=== PATIENT | female | born 1985 | race Caucasian/White ===

== ENCOUNTER 2017-01-04 10:55 | Emergency (ER) | payer BC, MEDICAID ==
[~2017-01-04] VITALS: Ht 154.9 cm; Wt 79.0 kg
[~2017-01-04 10:55] MED LIST: FERR-63 PO; IBUP-1008 PO; MULT-1116 PO
[2017-01-04] MEDS ORDERED: LORAZEPAM 1MG TABLET PO ONE (11:45)
[2017-01-04 11:57] LABS: BASOPHILS % 0.4 % (0.0-2.0); EOSINOPHILS % 1.8 % (0.0-5.0); HEMATOCRIT. 39.2 % (36.0-48.0); HEMOGLOBIN. 13.5 g/dL (12.0-16.0); LYMPHOCYTES % 30.4 % (20.0-50.0); MEAN CORPUSCULAR HEMOGLOBIN 30.8 pg (28.0-32.0); MEAN CORPUSCULAR HGB CONC 34.5 g/dL (31.0-37.0); MEAN CORPUSCULAR VOLUME 89.4 fL (81.0-99.0); MEAN PLATELET VOLUME 9.6 fl (7.4-10.4); MONOCYTES % 4.3 % (2.0-8.0); NEUTROPHILS % 63.1 % (40.0-76.0); PLATELET 229 x1000/uL (130-400); RED BLOOD CELL COUNT 4.39 mill/uL (4.2-5.4); RED CELL DISTRIBUTION WIDTH 12.8 % (11.6-14.6); WHITE BLOOD COUNT 7.3 x1000/uL (4.5-11.0)
[2017-01-04 12:02] LABS: CHLORIDE 106 mEq/L (98-107); INDEX HEMOLYSI 1 (1-3); INDEX ICTERIC 1 (1-4); INDEX LIPEMIC 1 (1-3)
[2017-01-04 12:07] LABS: ANION GAP 13; CALCIUM 8.9 mg/dL (8.5-10.1); CARBON DIOXIDE 27 mEq/L (21-32); UREA NITROGEN BLOOD 11 mg/dL (7-21); eGFR > 60 mL/min (>60)
[2017-01-04 12:29] LABS: CLARITY URINE CLEAR (CLEAR); COLOR URINE YELLOW (YELLOW); GLUCOSE URINE NEGATIVE (NEGATIVE); KETONES URINE NEGATIVE (NEGATIVE); LEUKOCYTE ESTERASE URINE NEGATIVE (NEGATIVE); NITRITE URINE NEGATIVE (NEGATIVE); OCCULT BLOOD URINE NEGATIVE (NEGATIVE); PROTEIN URINE NEGATIVE (NEGATIVE); SPECIFIC GRAVITY URINE 1.026 (1.005-1.030)
[2017-01-04 16:41] VITALS: BP 114/72
== END 2017-01-04 16:48 | disposition home or self-care (01) ==
LOC: ER 11:53
DX: F41.0 Panic disorder [episodic paroxysmal anxiety] (principal); Z79.899 Other long term (current) drug therapy; F41.9 Anxiety disorder, unspecified
CPT/HCPCS: 36415; 71010; 80048; 81003; 81025; 85025; 93005; 99285; J7030; Z7610

== ENCOUNTER 2017-05-10 16:35 | Emergency (ER) | payer BC ==
[~2017-05-10] VITALS: Ht 149.9 cm; Wt 82.0 kg
[2017-05-10 21:02] LABS: CHLORIDE 104 mEq/L (98-107)
[2017-05-10 21:04] LABS: BASOPHILS % 0.4 % (0.0-2.0); EOSINOPHILS % 1.1 % (0.0-5.0); HEMATOCRIT. 37.2 % (36.0-48.0); HEMOGLOBIN. 12.9 g/dL (12.0-16.0); LYMPHOCYTES % 22.6 % (20.0-50.0); MEAN CORPUSCULAR HEMOGLOBIN 30.9 pg (28.0-32.0); MONOCYTES % 5.6 % (2.0-8.0); NEUTROPHILS % 70.3 % (40.0-76.0); PLATELET 198 x1000/uL (130-400); RED BLOOD CELL COUNT 4.18 mill/uL (4.2-5.4); RED CELL DISTRIBUTION WIDTH 13.1 % (11.6-14.6)
[2017-05-10 21:15] LABS: CARBON DIOXIDE 25 mEq/L (21-32)
[2017-05-10 21:26] LABS: B-HCG QUANTITATIVE 7526 mIU/mL (<3)
[2017-05-10 23:35] VITALS: BP 124/75
== END 2017-05-10 23:37 | disposition home or self-care (01) ==
LOC: ER 21:57
DX: O20.0 Threatened abortion (principal); Z3A.01 Less than 8 weeks gestation of pregnancy
CPT/HCPCS: 36415; 76801; 80048; 84702; 85025; 86850; 86900; 99285

== ENCOUNTER 2017-08-17 19:55 | Observation (INO) | payer MEDICAID ==
[~2017-08-17] VITALS: Ht 152.4 cm; Wt 93.9 kg
[2017-08-17] MEDS ORDERED: FOLI-43 PO (21:00)
[2017-08-17] MEDS ORDERED: PNV1TABL76 MT (21:00)
== END 2017-08-17 21:20 | disposition home or self-care (01) ==
LOC: L&D 19:55
PROVIDERS: ADMIT Specialist; ATTEND Specialist
DX: O36.8120 Decreased fetal movements, second trimester, not applicable or unspecified (principal); Z3A.22 22 weeks gestation of pregnancy
CPT/HCPCS: 99281; G0378

== ENCOUNTER 2017-09-10 11:22 | Observation (INO) | payer MEDICAID ==
[~2017-09-10] VITALS: Ht 152.4 cm; Wt 92.5 kg
[~2017-09-10 11:22] MED LIST changes: -FERR-63 PO; +FOLI-43 PO; -IBUP-1008 PO; -MULT-1116 PO; +PNV1TABL76 MT
== END 2017-09-10 12:30 | disposition home or self-care (01) ==
LOC: L&D 11:22
PROVIDERS: ADMIT Obstetrics & Gynecology; ATTEND Obstetrics & Gynecology
DX: O26.892 Other specified pregnancy related conditions, second trimester (principal); R10.2 Pelvic and perineal pain; Z3A.25 25 weeks gestation of pregnancy
CPT/HCPCS: 99281; G0378

== ENCOUNTER 2018-09-15 17:18 | Observation (INO) | payer MEDICAID ==
[~2018-09-15] VITALS: Ht 152.4 cm; Wt 97.1 kg
[2018-09-15 18:32] LABS: CLARITY URINE CLEAR (CLEAR); COLOR URINE YELLOW (YELLOW); KETONES URINE NEGATIVE (NEGATIVE); LEUKOCYTE ESTERASE URINE NEGATIVE (NEGATIVE); NITRITE URINE NEGATIVE (NEGATIVE); OCCULT BLOOD URINE NEGATIVE (NEGATIVE); PROTEIN URINE 2+ (NEGATIVE); SPECIFIC GRAVITY URINE 1.027 (1.005-1.030)
== END 2018-09-15 20:05 | disposition home or self-care (01) ==
LOC: 8 EST LDRP 17:18
PROVIDERS: ADMIT Obstetrics & Gynecology; ATTEND Obstetrics & Gynecology
DX: O26.893 Other specified pregnancy related conditions, third trimester (principal); R10.9 Unspecified abdominal pain; M54.5 Low back pain; Z3A.31 31 weeks gestation of pregnancy
CPT/HCPCS: 81003; 99281; G0378

== ENCOUNTER 2021-04-09 00:28 | Emergency (ER) | payer MEDICAID ==
[~2021-04-09] VITALS: Ht 152.4 cm; Wt 96.0 kg
[2021-04-09] MEDS ORDERED: ALBUTEROL (0.083%) 2.5MG/3ML NEB HHN STA (06:33)
[2021-04-09] MEDS ORDERED: METHYLPREDNISOLONE SOD SUCC 125 MG/2 ML VIAL IV STA (06:33)
[2021-04-09] MEDS ORDERED: IPRATROPIUM BROMIDE (0.02%) 0.5MG/2.5ML NEB HHN STA (06:33)
[2021-04-09 06:49] LABS: BASOPHILS % 0.3 % (0.0-2.0); HEMATOCRIT. 39.8 % (36.0-48.0); HEMOGLOBIN. 13.5 g/dL (12.0-16.0); LYMPHOCYTES % 23.1 % (20.0-50.0); MEAN CORPUSCULAR HEMOGLOBIN 30.4 pg (28.0-32.0); MEAN CORPUSCULAR VOLUME 89.4 fL (81.0-99.0); MEAN PLATELET VOLUME 10.6 fl (7.4-10.4); MONOCYTES % 3.5 % (2.0-8.0); NEUTROPHILS % 65.1 % (40.0-76.0); PLATELET 284 x1000/uL (130-400); RED BLOOD CELL COUNT 4.45 mill/uL (4.2-5.4)
[2021-04-09 06:55] LABS: CHLORIDE 106 mEq/L (98-107)
[2021-04-09 07:25] LABS: HCG SCREEN NEGATIVE
[2021-04-09] MEDS ORDERED: ALBU6.7H9 INH (09:25)
[2021-04-09] MEDS ORDERED: P20 MT (09:25)
[2021-04-09 09:44] VITALS: BP 134/84
== END 2021-04-09 09:45 | disposition home or self-care (01) ==
LOC: ER 00:28
DX: J45.901 Unspecified asthma with (acute) exacerbation (principal); Z98.890 Other specified postprocedural states; Z79.899 Other long term (current) drug therapy
CPT/HCPCS: 36415; 71045; 80053; 84703; 85025; 93005; 94640; 96374; 99285; J2930; Z7610